=== PATIENT | female | born 1970 | race Caucasian/White ===

== ENCOUNTER → 2023-09-03 06:31 | Day surgery (SDC) | payer OTHER, SELFPAY | LOC: GI 06:31 | PROVIDERS: ATTENDING PHYSICIAN Internal Medicine Gastroenterology; FAMILY PHYSICIAN Family Medicine | DX: Z12.11 Encounter for screening for malignant neoplasm of colon (principal); K57.30 Diverticulosis of large intestine without perforation or abscess without bleeding; K64.0 First degree hemorrhoids; D12.0 Benign neoplasm of cecum; D12.3 Benign neoplasm of transverse colon | CPT/HCPCS: 45385; 45381; 45380; 88305 ==

== ENCOUNTER → 2024-01-09 08:32 | Outpatient (REF) | payer OTHER, SELFPAY | LOC: WDC 08:32 | PROVIDERS: ATTENDING PHYSICIAN Family Medicine | DX: Z12.31 Encounter for screening mammogram for malignant neoplasm of breast (principal) | CPT/HCPCS: 77063; 77067 ==

== ENCOUNTER → 2024-09-25 14:23 | Outpatient (REF) | payer OTHER, SELFPAY | LOC: RAD 14:23 | PROVIDERS: ATTENDING PHYSICIAN Nurse Practitioner Family | DX: M79.89 Other specified soft tissue disorders (principal); M25.532 Pain in left wrist; M79.632 Pain in left forearm | CPT/HCPCS: 73090; 73110; 73130 ==